=== PATIENT | male | born 1975 | race Caucasian/White ===

== ENCOUNTER 2017-11-30 18:46 | Inpatient (IN) | payer SELFPAY ==
[~2017-11-30] VITALS: Ht 185.4 cm; Wt 70.3 kg
[2017-11-30 18:53] VITALS: BP 133/89
--- NOTE | 2017-11-30 19:00 | NUR ---
42M BIB SELF WITH C/O ALCOHOL INTOXICATION X 3 DAYS; PT REPORTS OF DRINKING RICH JOYNER FOR THE PAST THREE DAYS. PT REPORTS OF DRINKING HALF OF [place] OF [place]. ETOH ODOR ON BREATHE. 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 PT REPORTS OF INTERMITTENT PALPATIONS. PT IS AOX4 TO PERSON, PLACE, SITUATION, AND PLACE. INTERMITTENT SLURRED SPEECH. PT CHANGED INTO GOWN AND PLACED ON CARDIAC, BP, PULSE, AND PULSE OX MONITORING. PT POSITIONED TO COMFORT. AWAITING ER MD NUNN. WILL CONTINUE TO MONITOR.
--- NOTE | 2017-11-30 19:03 | NUR ---
Dr. Calderon evaluating patient at bedside.
--- NOTE | 2017-11-30 19:08 | NUR ---
Pt report given to Debbie scott. Transfer of care at this time.
[2017-11-30] MEDS ORDERED: LORazepam 2 MG/ML VIAL IVP ONE (19:55)
[2017-11-30] MEDS ORDERED: NACL 0.9% 1,000 ML IV ONE (19:55)
[2017-11-30 20:18] LABS: BASOPHILS % (AUTO) 0.4 % (0.0-2.0); EOSINOPHILS % (AUTO) 0.4 % (0.0-4.0); HEMATOCRIT 45.9 % (36-52); HEMOGLOBIN 15.5 g/dL (12.0-18.0); LYMPHOCYTES # (AUTO) 2.5 K/uL (2.0-11.5); LYMPHOCYTES % (AUTO) 31.4 % (20.5-51.1); MEAN CORPUSCULAR HEMOGLOBIN 31 pg (27-31); MEAN CORPUSCULAR HGB CONC 34 g/dL (33-37); MEAN CORPUSCULAR VOLUME 91.4 fL (80-94); MONOCYTES # (AUTO) 0.3 K/uL (0.8-1.0); MONOCYTES % (AUTO) 3.6 % (1.7-9.3); NEUTROPHILS # (AUTO) 5.1 K/uL (1.8-7.7); NEUTROPHILS % (AUTO) 64.2 % (42.2-75.2); PLATELET COUNT (AUTO) 232 K/uL (140-450); RED BLOOD CELL COUNT(AUTO) 5.02 MIL/uL (4.20-6.10); RED CELL DISTRIBUTION WIDTH 13.1 % (11.6-13.7); WHITE BLOOD COUNT (AUTO) 7.9 K/uL (4.8-10.8)
[2017-11-30 20:38] LABS: APPEARANCE,URINE CLEAR (CLEAR); BILIRUBIN,URINE NEGATIVE (NEGATIVE); BLOOD, URINE NEGATIVE (NEGATIVE); COLOR,URINE YELLOW (YELLOW); LEUKOCYTE ESTERASE ,URINE NEGATIVE (NEGATIVE); NITRITE, URINE NEGATIVE (NEGATIVE); UGLUCOSE NEGATIVE (NEGATIVE)
[2017-11-30 20:51] LABS: ANION GAP 11.7 (8-16); CARBON DIOXIDE 26.2 mmol/L (21-32); CREATININE 0.9 mg/dL (0.7-1.3); POTASSIUM 3.9 mmol/L (3.5-5.1); TOTAL BILIRUBIN 0.5 mg/dL (0.0-1.0)
[2017-11-30] MEDS ORDERED: ONDANSETRON 4 MG/2 ML VIAL IVP PRN (21:25)
[2017-11-30] MEDS ORDERED: ACETAMINOPHEN 325 MG TAB PO PRN (21:25)
[2017-11-30] MEDS ORDERED: LORazepam 2 MG/ML VIAL IVP PRN (21:30)
--- NOTE | 2017-11-30 21:39 | NUR ---
Dr. Reyes evaluating patient at bedside.
[2017-11-30 21:45] LABS: PROTHROMBIN TIME 10.3 secs (10.8-13.4)
--- NOTE | 2017-11-30 21:47 | NUR ---
Patient will be admitted to care of [facility]. Admited to TELE. Will go to room 106B. Belongings list completed. Report to FARAZ ROWE.
[2017-11-30 21:50] LABS: BARBITURATE, URINE NEG. ng/ml (NEG <=200); BENZODIAZEPINE, URINE NEG. ng/mL (NEG <=200); CANNABINOID, URINE NEG. ng/mL (NEG <=50); COCAINE, URINE NEG. ng/mL (NEG <=300); OPIATE, URINE NEG. ng/mL (NEG <=2000); PHENCYCLIDINE SCREEN,URINE NEG. ng/mL (NEG <=25)
--- NOTE | 2017-11-30 21:50 | NUR ---
ADMITTED A 42 Y/O MALE FROM WITH CHIEF COMPLAIN OF ALCOHOL INTOXICATION. PATIENT WAS AMBULATORY, AA0X4. MRSA NASAL DONE. PERSONAL BELONGINGS AT BEDSIDE TABLE. EXPLAIN PLAN OF CARE AND VERBALIZED UNDERSTANDING. ADMISSION CARE DONE AND CARRY OUT ORDERS. ALL NEEDS ATTENDED. CALL LIGHT WITHIN REACH. BED IN LOW LOCKED POSITION. WILL CONTINUE TO MONITOR.
[2017-11-30 21:54] LABS: CHOL/HDL RATIO 2.6 (1-4.5); FREE T4 (FREE THYROXINE) 1.15 ng/dL (0.76-1.46); MAGNESIUM 1.9 mg/dL (1.8-2.4); PHOSPHORUS 3.6 mg/dL (2.5-4.9); THYROID STIMULATING HORMONE 0.43 uIU/mL (0.34-3.74)
[2017-11-30] MEDS: NACL 0.9% 1,000 ML IV SCH (22:00)
[2017-11-30] MEDS ORDERED: ZOLPIDEM 10 MG TAB PO SCH (23:30)
[2017-12-01] VITALS: BP 118/80
--- NOTE | 2017-12-01 00:05 | NUR ---
SEEN PATIENT ASLEEP, V/S AND RECORDED. NO S/S OF DISTRESS NOTED AT THIS TIME. CALL LIGHT WITHIN REACH. WILL CONTINUE TO MONITOR.
--- NOTE | 2017-12-01 02:10 | NUR ---
CHECKED PATIENT ASLEEP ON BED. BED IN LOW LOCKED POSITION. NO S/S OF DISTRESS NOTED. CALL LIGHT WITHIN REACH. WILL CONTINUE TO MONITOR.
[2017-12-01 04:00] VITALS: BP 119/85
[2017-12-01] MEDS: NACL 0.9% 1,000 ML IV SCH ×2 (06:55→16:35)
--- NOTE | 2017-12-01 07:15 | NUR ---
GAVE REPORT TO AM SHIFT NURSE AT BEDSIDE FOR CONTINUITY OF CARE. PATIENT IN STABLE CONDITION.
--- NOTE | 2017-12-01 07:16 | NUR ---
RECEIVED BEDSIDE REPORT FROM GRID TRIMMER NURSE. PATIENT IS AWAKE, ALERT AND ORIENTEDX4. NO SIGNS OF DISTRESS ON ROOM AIR. HE AMBULATES WELL. GAIT IS STEADY. SKIN IS INTACT. TELE MONITOR IN PLACE. R AC 18G INFUSING NS AT 110. CLEAN, DRY AND INTACT. PLACED PATIENT ON SEIZURE PRECAUTIONS. NO COMPLAINTS AT THIS TIME. BED IN LOW POSITION. CALL LIGHT WITHIN REACH. WILL CONTINUE TO MONITOR
[2017-12-01 07:34] LABS: BASOPHILS % (AUTO) 0.4 % (0.0-2.0); EOSINOPHILS % (AUTO) 0.6 % (0.0-4.0); HEMATOCRIT 41.1 % (36-52); HEMOGLOBIN 13.9 g/dL (12.0-18.0); LYMPHOCYTES # (AUTO) 1.9 K/uL (2.0-11.5); LYMPHOCYTES % (AUTO) 25.3 % (20.5-51.1); MEAN CORPUSCULAR HEMOGLOBIN 31 pg (27-31); MEAN CORPUSCULAR HGB CONC 34 g/dL (33-37); MEAN CORPUSCULAR VOLUME 92.3 fL (80-94); MONOCYTES # (AUTO) 0.4 K/uL (0.8-1.0); MONOCYTES % (AUTO) 5.5 % (1.7-9.3); NEUTROPHILS # (AUTO) 5.1 K/uL (1.8-7.7); NEUTROPHILS % (AUTO) 68.2 % (42.2-75.2); PLATELET COUNT (AUTO) 201 K/uL (140-450); RED BLOOD CELL COUNT(AUTO) 4.45 MIL/uL (4.20-6.10); RED CELL DISTRIBUTION WIDTH 12.6 % (11.6-13.7); WHITE BLOOD COUNT (AUTO) 7.4 K/uL (4.8-10.8)
[2017-12-01 08:00] VITALS: BP 126/82
[2017-12-01 08:13] LABS: ANION GAP 12.7 (8-16); CARBON DIOXIDE 24.2 mmol/L (21-32); CREATININE 0.7 mg/dL (0.7-1.3); POTASSIUM 3.9 mmol/L (3.5-5.1)
[2017-12-01] MEDS: MULTIVITAMIN 1 TAB PO SCH (08:37)
[2017-12-01] MEDS: chlordiazePOXIDE 25 MG CAP PO SCH ×3 (08:37→16:35)
[2017-12-01] MEDS: THIAMINE 100 MG TAB PO SCH (08:37)
[2017-12-01] MEDS: FOLIC ACID 1 MG TAB PO SCH (08:37)
[2017-12-01] MEDS: DOCUSATE SODIUM 100 MG GELCAP PO SCH ×2 (08:38→20:17)
--- NOTE | 2017-12-01 08:45 | NUR ---
ADMINISTERED MEDS. PATIENT TOLERATED WELL. ADMINISTERED TYLENOL FOR HAYNES. PATIENT TOLERATED WELL. BED IN LOW POSITION. CALL LIGHT WITHIN REACH. WILL CONTINUE TO MONITOR
--- NOTE | 2017-12-01 10:40 | NUR ---
PATIENT VOMITED. HE REFUSED ANTI NAUSEA MEDS. NO COMPLAINTS AT THIS TIME. WILL CONTINUE TO MONITOR THE PATIENT.
[2017-12-01 11:07] LABS: MAGNESIUM 1.7 mg/dL (1.8-2.4); PHOSPHORUS 3.1 mg/dL (2.5-4.9)
[2017-12-01] MEDS ORDERED: MAGNESIUM OXIDE 400 MG TAB PO SCH (11:55)
[2017-12-01 12:00] VITALS: BP 131/82
--- NOTE | 2017-12-01 12:18 | NUR ---
ADMINISTERED MEDS. PATIENT TOLERATED WELL. PATIENT HAS TREMORS. HE NEEDED PRN ATIVAN. IV IS CLEAN, DRY AND INTACT. WILL CONTINUE TO MONITOR
--- NOTE | 2017-12-01 13:25 | NUR ---
PATIENT WAS SLEEPING. ADMINISTERED MEDS. PATIENT TOLERATED WELL. WILL CONTINUE TO MONITOR THE PATIENT
--- NOTE | 2017-12-01 14:58 | NUR ---
PATIENT SITTING IN BED WATCHING TV. NO SIGNS OF DISTRESS ON ROOM AIR. BED IN LOW POSITION. CALL LIGHT WITHIN REACH. WILL CONTINUE TO MONITOR THE PATIENT.
[2017-12-01 16:00] VITALS: BP 123/81
--- NOTE | 2017-12-01 16:38 | NUR ---
ADMINISTERED MEDS. PATIENT TOLERATED WELL. IV IS CLEAN, DRY AND INTACT. NO SIGNS OF DISTRESS. NO SEIZURES OR TREMORS AT THIS TIME. WILL CONTINUE TO MONITOR
--- NOTE | 2017-12-01 17:49 | NUR ---
PATIENT IS EATING DINNER. NO SIGNS OF DISTRESS ON ROOM AIR. BED IN LOW POSITION. CALL LIGHT WITHIN REACH. WILL CONTINUE TO MONITOR THE PATIENT
--- NOTE | 2017-12-01 19:10 | NUR ---
GAVE BEDSIDE REPORT TO CLIENT COORDINATOR NURSE. PATIENT ENDORSED IN STABLE CONDITION
--- NOTE | 2017-12-01 19:11 | NUR ---
RECEIVED PATIENT RESTING COMFORTABLE ON BED. BED IN LOW LOCKED POSITION. EXPLAIN PLAN OF CARE AND VERBALIZED UNDERSTANDING. CALL LIGHT WITHIN REACH. WILL CONTINUE TO MONITOR.
[2017-12-01 20:00] VITALS: BP 131/85
[2017-12-01] MEDS ORDERED: ZOLPIDEM 5 MG TAB PO PRN (21:00)
[2017-12-02] VITALS: BP 130/80
--- NOTE | 2017-12-02 | NUR ---
SEEN PATIENT ASLEEP WHEN ENTERED THE ROOM. V/S TAKEN AND RECORDED. NO S/S OF DISTRESS NOTED. CALL LIGHT WITHIN REACH. WILL CONTINUE TO MONITOR.
[2017-12-02] MEDS: NACL 0.9% 1,000 ML IV SCH ×2 (00:41→09:47)
--- NOTE | 2017-12-02 02:05 | NUR ---
SEEN PATIENT ASLEEP COMFORTABLE ON BED. NO S/S OFF DISTRESS NOTED. ALL NEEDS ATTENDED. CALL LIGHT WITHIN REACH. WILL CONTINUE TO MONITOR.
[2017-12-02 04:00] VITALS: BP 118/70
[2017-12-02 05:49] LABS: BASOPHILS % (AUTO) 0.2 % (0.0-2.0); EOSINOPHILS # (AUTO) 0.1 K/uL (0-0.4); HEMATOCRIT 41.1 % (36-52); HEMOGLOBIN 13.8 g/dL (12.0-18.0); LYMPHOCYTES # (AUTO) 1.7 K/uL (2.0-11.5); LYMPHOCYTES % (AUTO) 21.7 % (20.5-51.1); MEAN CORPUSCULAR HEMOGLOBIN 31 pg (27-31); MEAN CORPUSCULAR HGB CONC 34 g/dL (33-37); MEAN CORPUSCULAR VOLUME 92.3 fL (80-94); MONOCYTES # (AUTO) 0.5 K/uL (0.8-1.0); MONOCYTES % (AUTO) 6.2 % (1.7-9.3); NEUTROPHILS # (AUTO) 5.7 K/uL (1.8-7.7); NEUTROPHILS % (AUTO) 70.9 % (42.2-75.2); PLATELET COUNT (AUTO) 171 K/uL (140-450); RED BLOOD CELL COUNT(AUTO) 4.45 MIL/uL (4.20-6.10); RED CELL DISTRIBUTION WIDTH 12.4 % (11.6-13.7)
[2017-12-02 06:14] LABS: ANION GAP 11.7 (8-16); CREATININE 0.8 mg/dL (0.7-1.3); POTASSIUM 3.7 mmol/L (3.5-5.1)
--- NOTE | 2017-12-02 07:10 | NUR ---
ENDORSED PATIENT TO AM SHIFT NURSE AT BEDSIDE FOR CONTINUITY OF CARE. PATIENT IN STABLE CONDITION.
--- NOTE | 2017-12-02 07:11 | NUR ---
RECEIVED PATIENT FROM VEGETABLE FARM WORKER NURSE AT BEDSIDE FOR CONTINUITY OF CARE. PATIENT STABLE, AOX4, WATCHING VIDEOS ON HIS CELL PHONE. RESPIRATIONS EVEN AND UNLABORED ON ROOM AIR. PATIENT DENIES PAIN. IV TO RIGHT AC INFUSING NS @ 110 ML/HR. UPDATED BOARD. UPDATED PATIENT WITH PLAN OF CARE FOR THE DAY, HE VERBALIZED UNDERSTANDING. SAFETY AND SEIZURE PRECAUTION IN PLACE, CALL LIGHT WITHIN REACH, WILL CONTINUE TO MONITOR PATIENT.
[2017-12-02 07:59] VITALS: BP 122/83
[2017-12-02] MEDS: THIAMINE 100 MG TAB PO SCH (08:10)
[2017-12-02] MEDS: MULTIVITAMIN 1 TAB PO SCH (08:10)
[2017-12-02] MEDS: FOLIC ACID 1 MG TAB PO SCH (08:11)
[2017-12-02] MEDS: chlordiazePOXIDE 25 MG CAP PO SCH (08:11)
--- NOTE | 2017-12-02 08:11 | NUR ---
ORDERED MEDICATIONS ADMINISTERED. PATIENT REFUSED COLACE BECAUSE HE STATES THAT HE "DOESN'T NEED IT". PATIENT FINISHING UP HIS BREAKFAST AND TOLERATED MEDICATIONS WELL. WILL CONTINUE TO MONITOR PATIENT.
[2017-12-02] MEDS: DOCUSATE SODIUM 100 MG GELCAP PO SCH (08:26)
--- NOTE | 2017-12-02 09:08 | NUR ---
PATIENT HAS BEEN SCREENED AND CATEGORIZED LOW NUTRITION RISK. PATIENT WILL BE SEEN WITHIN 7 DAYS OF ADMISSION. 12/07/[address]
--- NOTE | 2017-12-02 09:45 | NUR ---
PATIENT RESTING IN BED, RESPIRATIONS EVEN AND UNLABORED. SPOKE TO DR. JACOB ABOUT PATIENT'S DISCHARGE. ALSO INFORMED PATIENT SO THAT HE CAN PLAN ACCORDINGLY. PATIENT VERBALIZED UNDERSTANDING.
[2017-12-02] MEDS ORDERED: LIB25 PO (09:54)
--- NOTE | 2017-12-02 10:47 | NUR ---
DISCHARGE INSTRUCTIONS AND EDUCATION GIVEN ABOUT FOLLOWUP APPOINTMENT AND PRESCRIPTION MEDICATIONS. PATIENT VERBALIZED UNDERSTANDING. IV REMOVED, IV CATHETER INTACT, MINIMAL BLEEDING NOTED. ID BANDS CUT. TELE MONITOR REMOVED. PATIENT NOW WILL CHANGE INTO HIS OWN CLOTHING AND CALL HIS SISTER IN [place] TO PICK HIM UP AND BE READY TO BE DISCHARGED. INFORMED PATIENT TO CALL RN WHEN HE IS READY. PATIENT VERBALIZED UNDERSTANDING.
--- NOTE | 2017-12-02 10:55 | NUR ---
PATIENT AMBULATED OFF FLOOR ON STEADY GAIT WITH RN ACCOMPANYING HIM. PATIENT TOOK ALL HIS BELONGINGS WITH HIM. PATIENT IN STABLE CONDITION. [id number] PICKING HIM UP TO TAKE HIM HOME.
== END 2017-12-02 10:55 | disposition home or self-care (01) | DRG 896 ==
LOC: MED 18:46 → MTU 21:23
PROVIDERS: ADMIT General Practice; ATTEND General Practice
DX: F10.239 Alcohol dependence with withdrawal, unspecified (principal); G92 Toxic encephalopathy; G31.2 Degeneration of nervous system due to alcohol; F10.229 Alcohol dependence with intoxication, unspecified; F41.9 Anxiety disorder, unspecified; E86.0 Dehydration; Z81.1 Family history of alcohol abuse and dependence; Z82.49 Family history of ischemic heart disease and other diseases of the circulatory system; Z87.891 Personal history of nicotine dependence; Y90.9 Presence of alcohol in blood, level not specified
CPT/HCPCS: 36415; 71045; 80048; 80053; 80305; 81003; 82150; 83036; 83690; 83735; 83880; 84100; 84439; 84443; 85025; 85610; 85730; 87081; 96361; 96374; 99285; G0482; J2060; J7030; Q0092